=== PATIENT | male | born 1990 | race African-American/Black ===

== ENCOUNTER 2017-11-04 16:11 | Emergency (ER) | payer SELFPAY ==
[2017-11-04 16:12] VITALS: BP 121/71; PULSE 84; RESP 14; TEMP 98.3; O2SAT 99
--- NOTE | 2017-11-04 19:21 | PD ---
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 Patient states he did research and read that this could increase his mucus production. He has nasal congestion. He offers little more information. He has very bizarre affect. I asked him if he wanted to see psychiatry and he told me know he needed to know why his mucus has changed. Denies any suicidal homicidal ideations. EF is no other history to me at this time. PFSH Past Medical History Medical History: Denies Significant Hx Cancer: No Cardiovascular Problems: No Diminished Hearing: No Endocrine: No Genitourinary: No Immune Disorder: No Musculoskeletal: No Neurologic: No Psychiatric: No Reproductive: No Respiratory: No Immunizations Current: Yes Social History Alcohol Use: Yes (4 DRINKS PER MONTH) Tobacco Use: Yes (6-10 CIGS PER DAY) Substance Use: No Allergies-Medications (Allergen,Severity, Reaction): Coded Allergies: No Known Allergies (Verified , 06/03/16) Reported Meds & Prescriptions Reported Meds & Active Scripts Active No Active Prescriptions or Reported Medications Review of Systems Except as stated in HPI: all other systems reviewed are Neg Physical Exam Narrative Well-nourished male patient, ambulatory with a very bizarre affect, but in no acute distress. He appears nontoxic. He has even respirations. He has a regular cardiac rate. His abdomen is nondistended. He has no obvious deformities. He does have clear speech. He moves all extremities equally. Data Data Last Documented VS Vital Signs Date Time Temp Pulse Resp B/P (MAP) Pulse Ox O2 Delivery O2 Flow Rate FiO2 11/04/17 16:12 98.3 84 14 121/71 (88) 99 MDM Medical Decision Making Medical Screen Exam Complete: Yes Emergency Medical Condition: Yes Medical Record Reviewed: Yes Differential Diagnosis Normal examination versus intoxication versus sinusitis versus allergies versus psychiatric etiology Narrative Course 27-year-old male presents to emergency department for evaluation. Patient appears nontoxic. Part about placement, patient chooses to leave. AMA: The risks of leaving against medical advice without further evaluation treatment were discussed with the patient. These risks include cardiac dysfunction, cardiac dysrhythmia, possible heart attack, possible stroke or . The patient indicated understanding of these risks and appeared to have the capacity to make this decision. Diagnosis Primary Impression: Nasal congestion Scripts No Active Prescriptions or Reported Meds Disposition: 07 AGAINST MEDICAL ADVICE Condition: Stable Rosa [place] Nov 04, 2017 19:21
== END 2017-11-04 22:32 | disposition left against medical advice (07) ==
LOC: NED 16:11
DX: R09.81 Nasal congestion (principal); F17.210 Nicotine dependence, cigarettes, uncomplicated; Z53.21 Procedure and treatment not carried out due to patient leaving prior to being seen by health care provider
CPT/HCPCS: 99281